=== PATIENT | female | born 1975 | race Asian ===

== ENCOUNTER 2018-02-04 11:28 | Emergency (ER) | payer OTHER ==
[~2018-02-04] VITALS: Ht 160 cm; Wt 88.9 kg
[2018-02-04 11:40] VITALS: Ht 160 cm; Wt 88.9 kg
[2018-02-04 13:29] LABS: microscopic required? YES; urine erythrocyte 2+ (NEGATIVE)
[2018-02-04 15:29] VITALS: BP 110/71
== END 2018-02-04 15:29 | disposition home or self-care (01) ==
LOC: ED 11:28
PROVIDERS: Emergency Medicine
DX: N10 Acute pyelonephritis (principal); I10 Essential (primary) hypertension; E11.9 Type 2 diabetes mellitus without complications; E03.9 Hypothyroidism, unspecified
CPT/HCPCS: J0696; J2001